=== PATIENT | female | born 1945 | race African-American/Black ===

== ENCOUNTER 2018-11-16 11:44 | Emergency (ER) | payer OTHER, MEDICAID ==
[~2018-11-16] VITALS: Ht 165.1 cm; Wt 105.0 kg
[~2018-11-16 11:44] MED LIST: AMLO10TA80 PO; ASPI-1158; ATEN-42; ATOR20TA65 PO; LEVO112T7 PO; LOSA100T14; NORT25CA; TRAM50TA94 PO
[2018-11-16 13:30] VITALS: BP 175/102
== END 2018-11-16 13:31 | disposition home or self-care (01) ==
LOC: ER 11:44
DX: S80.02XA Contusion of left knee, initial encounter (principal); S80.01XA Contusion of right knee, initial encounter; S70.01XA Contusion of right hip, initial encounter; Z79.899 Other long term (current) drug therapy; Z90.710 Acquired absence of both cervix and uterus; Z98.51 Tubal ligation status; W19.XXXA Unspecified fall, initial encounter; Y93.89 Activity, other specified; Y92.89 Other specified places as the place of occurrence of the external cause; Y99.8 Other external cause status
CPT/HCPCS: 99282